=== PATIENT | female | born 1975 ===

== ENCOUNTER → 2023-01-29 | Day surgery (SDC) | payer OTHER ==
[~2023-01-29] MED LIST: FENTANYL CITRATE/PF 100MCG/2 ML INJ ONE; GLUCAGON FOR INJ 1 MG VIAL ONE; LACTATED RINGER'S 1,000 ML ONE; LIDOCAINE HCL 2% LOCAL INJ 5 ML SDV VIAL INJ ONE; PROPOFOL IV EMULSION 10 MG/ML 20 ML VIAL ONE
[2023-01-29 12:14] VITALS: TEMP 97.3
[2023-01-29 12:45] VITALS: BP 120/80; PULSE 68; RESP 16; O2SAT 100
== END | disposition home or self-care (01) ==
LOC: OR 10:08
PROVIDERS: ATTEND Internal Medicine Gastroenterology
DX: Z12.11 Encounter for screening for malignant neoplasm of colon (principal); D12.3 Benign neoplasm of transverse colon; K57.30 Diverticulosis of large intestine without perforation or abscess without bleeding; K63.89 Other specified diseases of intestine; K64.8 Other hemorrhoids
CPT/HCPCS: 45380; 45384; 81025; J1610; J2001; J2704; J3010; J7121; 45378